=== PATIENT | female | born 1990 | race Caucasian/White ===

== ENCOUNTER 2019-01-01 07:15 | Inpatient (IN) | payer OTHER ==
[~2019-01-01] VITALS: Ht 157.5 cm; Wt 149.0 kg
[2019-01-01] MEDS ORDERED: LEVOTHYROXINE25 MCG (10:45)
[2019-01-01] MEDS ORDERED: PRENATABS RX T1 EACH PO (17:09)
[2019-01-01] MEDS ORDERED: FE C TABLET1 EACH PO (17:10)
== END 2019-01-03 19:56 | disposition home or self-care (01) | DRG 807 ==
LOC: ADM 07:15 → EDSTATUS 07:30 → ADM 07:30 → LDR 16:58 → OB/GYN 16:58 → ADM 01-10 09:30
PROVIDERS: ADMIT Obstetrics & Gynecology
PROC: 10E0XZZ Delivery of Products of Conception, External Approach (ICD-10-PCS; principal; 2019-01-01)
PROC: 4A1HXCZ Monitoring of Products of Conception, Cardiac Rate, External Approach (ICD-10-PCS; 2019-01-01)
PROC: 4A033R1 Measurement of Arterial Saturation, Peripheral, Percutaneous Approach (ICD-10-PCS; 2019-01-01)
DX: O80 Encounter for full-term uncomplicated delivery (principal); Z37.0 Single live birth; Z3A.38 38 weeks gestation of pregnancy

== ENCOUNTER 2019-01-01 13:27 | Outpatient (CLI) | payer OTHER ==
[~2019-01-01 13:27] MED LIST: LEVOTHYROXINE25 MCG
[2019-01-01] MEDS ORDERED: PRENATABS RX T1 EACH PO (17:09)
[2019-01-01] MEDS ORDERED: FE C TABLET1 EACH PO (17:10)
== END 2019-01-01 16:59 | disposition still patient (30) ==
LOC: OBS/DEL 13:27
DX: O47.1 False labor at or after 37 completed weeks of gestation (principal); Z34.03 Encounter for supervision of normal first pregnancy, third trimester